=== PATIENT | female | born 1965 | race Caucasian/White ===

== ENCOUNTER 2017-11-25 20:13 | Emergency (ER) | END 2017-11-26 02:13 | disposition home or self-care (01) ==

== ENCOUNTER 2017-11-26 21:48 | Emergency (ER) | END 2017-11-27 02:49 | disposition home health service (06) ==

== ENCOUNTER 2018-12-15 11:50 | Emergency (ER) | payer BC, OTHER ==
[~2018-12-15] VITALS: Ht 167.6 cm; Wt 104.5 kg
[~2018-12-15 11:50] MED LIST: HYDR-3980 PO; IBUP800T48 PO; METH750T93 PO
[2018-12-15 11:57] VITALS: BP 155/85; PULSE 74; RESP 20; Ht 167.6 cm; Wt 104.5 kg
[2018-12-15] MEDS ORDERED: KETOROLAC 15 MG INJ IM STA (12:29)
[2018-12-15] MEDS ORDERED: DIAZEPAM 5 MG TAB PO ONE (12:30)
[2018-12-15] MEDS ORDERED: ACETAMINOPHEN 325 MG TAB PO ONE (13:30)
--- NOTE | 2018-12-15 13:35 | ERD ---
ER Documentation Chief Complaint Chief Complaint RT shoulder/Lt elbow/back pain x3days; anxiety, insomnia HPI This is a 53-year-old old female with history of anxiety disorder and chronic p ain presents with exacerbation of her chronic pains after running out of her oxycodone 3 days ago. Patient has history of osteoarthritis, DJD, sciatica and is managed by plate painter apprentice. Patient states she has an appointment with her plate painter apprentice in 7 days and requesting medications here. She is complaining of pain "everywhere" she her left lower back. Pain radiates down to her left lower leg with some tingling. This is very consistent with her previous sciatica and chronic pains. She denies any new or recent trauma. Denies any fevers or chills. She has history of overactive bladder disorder and has been having urinary frequency and urgency. She otherwise denies any loss of bowel or bladder control. She is also requesting something for anxiety. She states she usually takes Xanax. She states she ran out of these medications a few days ago. ROS All systems reviewed and are negative except as per history of present illness. Medications Home Meds Active Scripts Methocarbamol* (Robaxin*) 750 Mg Tablet, 750 MG PO TID, #20 TAB Prov:LEKKOS,APOSTOLOS A. DO 11/26/17 Ibuprofen* (Motrin*) 800 Mg Tab, 800 MG PO Q6H PRN for PAIN AND OR ELEVATED TEMP, #30 TAB Prov:LEKKOS,APOSTOLOS A. DO 11/26/17 Hydrocodone/Acetaminophen ([place] 10-325 Tablet) 1 Each Tablet, 1 TAB PO Q6H PRN for PAIN, #20 TAB Prov:LEKKOS,APOSTOLOS A. DO 11/26/17 Allergies Allergies: Coded Allergies: quetiapine (Unverified Allergy, Unknown, suicidal, 11/26/17) PMhx/Soc History of Surgery: Yes (c section x2) Anesthesia Reaction: No Hx Neurological Disorder: No Hx Respiratory Disorders: No Hx Cardiac Disorders: Yes (htn, cholesterol) Hx Psychiatric Problems: Yes (depression) Hx Miscellaneous Medical Probl: Yes (alzheimer's) Hx Alcohol Use: No Hx Substance Use: No Hx Tobacco Use: Yes Smoking Status: Current every day smoker Physical Exam Vitals Vital Signs Date Temp Pulse Resp B/P (MAP) Pulse Ox O2 O2 Flow FiO2 Time Delivery Rate 12/15/18 97.4 74 20 155/85 96 11:57 (108) Physical Exam Const: + Mildly anxious appearing, wheelchair-bound. Head: Atraumatic Eyes: Normal Conjunctiva ENT: Normal External Ears, Nose and Mouth. Neck: Full range of motion. No meningismus. Resp: Clear to auscultation bilaterally Cardio: Regular rate and rhythm, no murmurs Abd: Soft, non tender, non distended. Normal bowel sounds Skin: No petechiae or rashes Back: + Left paralumbar spinal tenderness palpation, no midline tenderness. Ext: No cyanosis, or edema Neur: Awake and alert Psych: Normal Mood and Affect Results 24 hrs Laboratory Tests Test 12/15/18 12:50 Urine Color COLORLESS Urine Clarity CLEAR Urine pH 7.0 Urine Specific [place] 1.002 Urine Ketones NEGATIVE mg/dL Urine Nitrite NEGATIVE mg/dL Urine Bilirubin NEGATIVE mg/dL Urine Urobilinogen NEGATIVE mg/dL Urine Leukocyte Esterase NEGATIVE Harriet/ul Urine Hemoglobin NEGATIVE mg/dL Urine Glucose NEGATIVE mg/dL Urine Total Protein NEGATIVE mg/dl Current Medications Medications Dose Sig/Edi Start Time Status Last (Trade) Ordered Route PRN Stop Time Admin Dose Reason Admin Diazepam 10 mg ONCE ONCE 12/15/18 DC 12/15/18 (Valium) PO 12:30 12/15/18 12:45 12:33 Ketorolac 30 mg ONCE STAT 12/15/18 DC 12/15/18 Tromethamine IM 12:29 12/15/18 12:45 (Toradol) 12:33 650 mg ONCE ONCE 12/15/18 Acetaminophen PO 13:30 12/15/18 (Tylenol 13:31 Tab) Procedures/MDM LABS & DIAGNOSTIC IMAGING: Urine: no e/o acute infection or hematuria Uhcg: neg ED COURSE: The patient was given Valium, Toradol, Tylenol The medication was well tolerated and the patient had market improvement in symptoms. The patient remained stable throughout ED course. MEDICAL DECISION MAKING: This is a 53-year-old female with history of chronic pain presents with exacerb ation of her pain after running out of her medications. Patient's record on cures was consulted, she was most recently given a 30-day supply of oxycodone on November 23, 2018. Further narcotics would therefore held off here in the ED. Patient initially stated that her medications ran out, then changes her story to stay that her medications were stolen. I am concerned about narcotic dependence and will not provide rx for further opioids. I recommended that she see her plate painter apprentice for further refills. She has an appointment with a pain medicine specialist in 1 week. She also complained of urinary frequency, there is no evidence of infection on UA. Patient's spine symptoms have stabilized after Valium, Toradol and Tylenol. Patient is appropriate for outpatient work up. No evidence of cauda equina, cord compression, infiltrative, or infectious etiology. PRESCRIPTIONS: None SPECIALIST FOLLOW UP RECOMMENDED: landing support specialist Patient has been advised to follow up with primary care in 1-2 days. Blood Pressure Assessment: Patient's blood pressure was elevated (>120/80) but appears stable without evidence of hypertension emergency or urgency. The patient was counseled about the risks of hypertension and urged to pursue outpatient monitoring and therapy within a week with their primary care physician. Departure Diagnosis: Primary Impression: Chronic pain Chronic pain type: chronic pain syndrome Qualified Codes: G89.4 - Chronic pain syndrome Additional Impression: Anxiety Condition: Stable Patient Instructions: Managing Chronic Pain: Activity, Managing Chronic Pain: Medications Referrals: [facility] Ur[facility] Care 7 a.m.- 11 p.m. Every Day of the Week NO APPOINTMENT OR AUTHORIZATION NEEDED Additional Instructions: Keep the appointment any help with your plate painter apprentice. I will not prescribe you any further narcotics as he should have plenty at home. Your blo od pressure and vital signs were otherwise normal here. you can return here for new or worsening symptoms. SHOAIB SELBY PA-C Dec 15, 2018 13:35
== END 2018-12-15 13:34 | disposition home or self-care (01) ==
LOC: FTE 11:50
DX: G89.4 Chronic pain syndrome (principal); F41.9 Anxiety disorder, unspecified
CPT/HCPCS: 81003; 84703; 96372; 99284; J1885

== ENCOUNTER 2019-01-10 10:06 | Emergency (ER) | payer BC, OTHER ==
[~2019-01-10] VITALS: Ht 152.4 cm; Wt 104.5 kg
[~2019-01-10 10:06] MED LIST changes: +NAPR-985 PO; +ONDA4TAB14 PO
[2019-01-10 10:13] VITALS: Ht 152.4 cm; Wt 104.5 kg
[2019-01-10] MEDS ORDERED: SOD CHLORIDE 0.9% 1,000 ML IV STA (10:39)
[2019-01-10] MEDS ORDERED: ONDANSETRON 4 MG INJ IV STA (10:39)
[2019-01-10] MEDS ORDERED: morphine 2 MG INJ IV STA (10:39)
[2019-01-10] MEDS ORDERED: LACTULOSE 30ML CUP PO ONE (12:00)
[2019-01-10 12:52] VITALS: BP 132/78; PULSE 88; RESP 18
--- NOTE | 2019-01-10 14:27 | ERD ---
ER Documentation Chief Complaint Chief Complaint left elbow pain, has had fluid before, constipation x1wk HPI 53-year-old female complaining of left elbow pain. Patient states she has had pain for the last few weeks and does not recall any traumatic injuries. She states that in the past the elbow has been drained and was told there is an infection. Denies any numbness or tingling. Took oxycodone for her back but is not helping her pain in her elbow. Denies other medical problems. NKDA. Surgical history denies. Social history denies ROS All systems reviewed and are negative except as per history of present illness. Medications Home Meds Active Scripts Ondansetron (Ondansetron Odt) 4 Mg Tab.rapdis, 4 MG PO Q6H PRN for NAUSEA AND/OR VOMITING, #10 TAB Prov:HARLEY PAL PA-C 01/10/19 Naproxen* (Naprosyn*) 500 Mg Tablet, 500 MG PO BID PRN for PAIN AND/OR INFLAMMATION, #30 TAB Prov:HARLEY PAL PA-C 01/10/19 Methocarbamol* (Robaxin*) 750 Mg Tablet, 750 MG PO TID, #20 TAB Prov:LEKKOS,APOSTOLOS A. DO 11/26/17 Ibuprofen* (Motrin*) 800 Mg Tab, 800 MG PO Q6H PRN for PAIN AND OR ELEVATED TEMP, #30 TAB Prov:LEKKOS,APOSTOLOS A. DO 11/26/17 Hydrocodone/Acetaminophen ([place] 10-325 Tablet) 1 Each Tablet, 1 TAB PO Q6H PRN for PAIN, #20 TAB Prov:LEKKOS,APOSTOLOS A. DO 11/26/17 Allergies Allergies: Coded Allergies: quetiapine (Unverified Allergy, Unknown, suicidal, 11/26/17) PMhx/Soc History of Surgery: Yes (c section x2) Anesthesia Reaction: No Hx Neurological Disorder: No Hx Respiratory Disorders: No Hx Cardiac Disorders: Yes (htn, cholesterol) Hx Psychiatric Problems: Yes (depression) Hx Miscellaneous Medical Probl: Yes (alzheimer's) Hx Alcohol Use: No Hx Substance Use: No Hx Tobacco Use: Yes Smoking Status: Current every day smoker FmHx Family History: No diabetes, No coronary disease, No other Physical Exam Vitals Vital Signs Date Temp Pulse Resp B/P (MAP) Pulse Ox O2 O2 Flow FiO2 Time Delivery Rate 01/10/19 98.0 88 18 132/78 98 Room Air 12:52 (96) 01/10/19 98.0 68 18 123/72 97 10:13 (89) Physical Exam GENERAL: The patient is well-appearing, well-nourished, in no acute distress CHEST: Clear to auscultation bilaterally. There are no rales, wheezes or rhonchi. HEART: Regular rate and rhythm. No murmurs, clicks, rubs or gallops EXTREMITIES: Tender to palpation to left elbow with no obvious deformity. Distal pulses intact. Compartments soft. NEUROLOGIC: Alert and oriented. Cranial nerves II through XII intact. Motor strength in all 4 extremities with 5 out of 5 strength. Sensation grossly intact. SKIN: Mild swelling noted to the left elbow with no surrounding erythema or fluctuance. Result Diagram: 01/10/19 1107 01/10/19 1107 Results 24 hrs Laboratory Tests Test 01/10/19 11:07 01/10/19 11:49 White Blood Count 7.7 10^3/ul Red Blood Count 4.52 10^6/ul Hemoglobin 13.3 g/dl Hematocrit 41.1 % Mean Corpuscular Volume 90.9 fl Mean Corpuscular Hemoglobin 29.4 pg Mean Corpuscular Hemoglobin Concent 32.4 g/dl Red Cell Distribution Width 12.7 % Platelet Count 342 10^3/UL Mean Platelet Volume 10.3 fl Immature Granulocytes % 0.300 % Neutrophils % 56.9 % Lymphocytes % 34.6 % Monocytes % 6.1 % Eosinophils % 1.4 % Basophils % 0.7 % Nucleated Red Blood Cells % 0.0 /100WBC Immature Granulocytes # 0.020 10^3/ul Neutrophils # 4.4 10^3/ul Lymphocytes # 2.7 10^3/ul Monocytes # 0.5 10^3/ul Eosinophils # 0.1 10^3/ul Basophils # 0.1 10^3/ul Nucleated Red Blood Cells # 0.0 10^3/ul Sodium Level 139 mmol/L Potassium Level 4.4 mmol/L Chloride Level 103 mmol/L Carbon Dioxide Level 26 mmol/L Anion Gap 10 Blood Urea Nitrogen 12 mg/dl Creatinine 0.54 mg/dl Est Glomerular Filtrat Rate mL/min > 60 mL/min Glucose Level 84 mg/dl Calcium Level 9.8 mg/dl Total Bilirubin 0.4 mg/dl Direct Bilirubin 0.00 mg/dl Indirect Bilirubin 0.4 mg/dl Aspartate Amino Transf (AST/SGOT) 43 IU/L Alanine Aminotransferase (ALT/SGPT) 22 IU/L Alkaline Phosphatase 88 IU/L Total Protein 8.4 g/dl Albumin 4.7 g/dl Globulin 3.70 g/dl Albumin/Globulin Ratio 1.27 Urine Color STRAW Urine Clarity CLEAR Urine pH 6.0 Urine Specific [place] 1.004 Urine Ketones NEGATIVE mg/dL Urine Nitrite NEGATIVE mg/dL Urine Bilirubin NEGATIVE mg/dL Urine Urobilinogen NEGATIVE mg/dL Urine Leukocyte Esterase NEGATIVE Harriet/ul Urine Hemoglobin NEGATIVE mg/dL Urine Glucose NEGATIVE mg/dL Urine Total Protein NEGATIVE mg/dl Current Medications Medications Dose Sig/Edi Start Time Status Last (Trade) Ordered Route PRN Stop Time Admin Dose Reason Admin Sodium 1,000 ml @ Q1H STAT 01/10/19 DC 01/10/19 Chloride 1,000 mls/hr IV 10:39 11:03 01/10/19 11:38 Morphine 2 mg ONCE STAT 01/10/19 DC 01/10/19 Sulfate IV 10:39 11:03 (morphine) 01/10/19 10:41 Ondansetron 4 mg ONCE STAT 01/10/19 DC 01/10/19 HCl (Zofran IV 10:39 11:03 Inj) 01/10/19 10:41 Lactulose 20 gm ONCE ONCE 01/10/19 DC 01/10/19 (Enulose) PO 12:00 12:49 01/10/19 12:01 Procedures/MDM DIAGNOSTIC IMAGING REPORT Patient: LOS ANDERSON : 1965 Age: 53 Sex: F MR #: [id number] DOS: 01/10/19 1039 Ordering MD: ADRI PAL PA-C Location: [facility] Room/Bed: PROCEDURE: XR Left Elbow. CLINICAL INDICATION: elbow pain TECHNIQUE: AP, lateral and oblique views of the left elbow performed. COMPARISON: None. FINDINGS: Moderately displaced fracture of the radial head and coronoid process which appears nonacute. There is resulting posterior subluxation of the radius relative to the humerus. Multiple areas of articular surface irregularity of the humerus, radial head, and the olecranon. Large joint effusion and pronounce soft tissue swelling. IMPRESSION: Moderately displaced fractures of the radial head and coronoid process with resulting posterior subluxation of the radius. Fracture deformities appear nonacute. Multifocal articular surface irregularities, favored to be sequelae of chronic arthrosis as above. Large joint effusion and prominent soft tissue swelling. ER Course: Long-arm splint applied in ED. Sling given ED. MDM: 53-year-old female complaining of elbow pain. Patient states that a year ago she sustained injury to her elbow and she fell in the shower a month ago. She is unsure when she may have developed elbow fracture. Patient denies any numbness or tingling. I have low suspicion for compartment syndrome. I have low suspicion for neuro deficit. Patient has findings consistent with old fracture of the elbow which is likely cause of her swelling. Patient is discharged with strict ER precautions and told to follow-up with primary care within 1 to 2 days for close evaluation. Patient is told symptoms change or w orsen to return immediately to the ER. All questions answered at discharge Departure Diagnosis: Primary Impression: Elbow fracture Condition: Stable Patient Instructions: Elbow Fracture Referrals: [facility] YOU HAVE RECEIVED A MEDICAL SCREENING EXAM AND THE RESULTS INDICATE THAT YOU DO NOT HAVE A CONDITION THAT REQUIRES URGENT TREATMENT IN THE EMERGENCY DEPARTMENT. FURTHER EVALUATION AND TREATMENT OF YOUR CONDITION CAN WAIT UNTIL YOU ARE SEEN IN YOUR DOCTORS OFFICE WITHIN THE NEXT 1-2 DAYS. IT IS YOUR RESPONSIBILITY TO MAKE AN APPOINTMENT FOR FOLOW-UP CARE. IF YOU HAVE A PRIMARY DOCTOR --you should call your primary doctor and schedule an appointment IF YOU DO NOT HAVE A PRIMARY DOCTOR YOU CAN CALL OUR PHYSICIAN REFERRAL HOTLINE AT IF YOU CAN NOT AFFORD TO SEE A PHYSICIAN YOU CAN CHOSE FROM THE FOLLOWING [facility] [id number] [facility] [address] [facility] [address] [facility] [address] [facility] [address] [facility] [facility]. [address] Additional Instructions: FOLLOW UP WITH YOUR PRIMARY CARE PHYSICIAN TOMORROW.Return to this facility if you are not improving as expected. HARLEY PAL PA-C Jan 10, 2019 14:27
== END 2019-01-10 12:52 | disposition home or self-care (01) ==
LOC: FTE 10:06
DX: S42.402A Unspecified fracture of lower end of left humerus, initial encounter for closed fracture (principal); I10 Essential (primary) hypertension; G30.9 Alzheimer's disease, unspecified; F17.210 Nicotine dependence, cigarettes, uncomplicated; W18.2XXA Fall in (into) shower or empty bathtub, initial encounter; Y92.9 Unspecified place or not applicable
CPT/HCPCS: 29105; 36415; 73080; 80053; 81003; 85025; 96374; 96375; 99284; J2270; J2405; J7030

== ENCOUNTER 2019-02-14 10:03 | Emergency (ER) | payer OTHER ==
[~2019-02-14] VITALS: Ht 162.6 cm; Wt 104.3 kg
[~2019-02-14 10:03] MED LIST changes: +PRED20TA PO
[2019-02-14 10:21] VITALS: BP 164/85; PULSE 97; RESP 20; Ht 162.6 cm; Wt 104.3 kg
== END 2019-02-14 11:45 | disposition home or self-care (01) ==
LOC: FTE 10:03
DX: J44.1 Chronic obstructive pulmonary disease with (acute) exacerbation (principal)
CPT/HCPCS: 99282

== ENCOUNTER 2019-04-16 18:32 | Emergency (ER) | payer OTHER, MEDICAID ==
[~2019-04-16] VITALS: Ht 160 cm; Wt 103.9 kg
[~2019-04-16 18:32] MED LIST changes: +ALBU18HF INHALATION; +ALBU8.5H8 INH; -HYDR-3980 PO; +HYDR25TA6 PO; -IBUP800T48 PO; +LEVO100T8 PO; +LISI-471 PO; +MAGN400O19 PO; +MELA5TAB4 PO; -METH750T93 PO; +NITR-58 PO; -ONDA4TAB14 PO; +OXYB5TAB22 PO; +OXYC-279 PO; -PRED20TA PO; +RISP2TAB93 PO; +SERT50TA6 PO; +TOPI25TA PO; +TRAZ-188 PO
[2019-04-16 18:47] VITALS: Ht 160 cm; Wt 103.9 kg
[2019-04-16] MEDS ORDERED: clonAZEPAM 0.5 MG TAB PO ONE (21:00)
[2019-04-16] MEDS ORDERED: OLANZAPINE 5 MG TAB PO ONE (21:00)
[2019-04-16 23:11] VITALS: BP 138/65; PULSE 76; RESP 16
[2019-04-16] MEDS ORDERED: QUETIAPINE 100 MG TAB PO ONE (23:30)
== END 2019-04-16 23:15 | disposition home or self-care (01) ==
LOC: E/R 18:32
DX: M54.32 Sciatica, left side (principal); F41.1 Generalized anxiety disorder; J45.909 Unspecified asthma, uncomplicated; E66.01 Morbid (severe) obesity due to excess calories; R40.2142 Coma scale, eyes open, spontaneous, at arrival to emergency department; R40.2252 Coma scale, best verbal response, oriented, at arrival to emergency department; Z68.41 Body mass index [BMI] 40.0-44.9, adult; Z87.891 Personal history of nicotine dependence
CPT/HCPCS: 36415; 80053; 80307; 81003; 85025; 99283

== ENCOUNTER 2019-04-17 20:13 | Emergency (ER) | payer OTHER, MEDICAID ==
[~2019-04-17] VITALS: Ht 162.6 cm; Wt 107.7 kg
[2019-04-17 20:14] VITALS: Ht 162.6 cm; Wt 107.7 kg
[2019-04-17 20:53] VITALS: BP 151/75; PULSE 103; RESP 19
== END 2019-04-17 21:26 | disposition home or self-care (01) ==
LOC: E/R 20:13
DX: F41.9 Anxiety disorder, unspecified (principal); F17.210 Nicotine dependence, cigarettes, uncomplicated; J45.901 Unspecified asthma with (acute) exacerbation; E66.01 Morbid (severe) obesity due to excess calories; Z68.41 Body mass index [BMI] 40.0-44.9, adult
CPT/HCPCS: 99283